=== PATIENT | female | born 1935 | race Caucasian/White ===

== ENCOUNTER 2017-07-16 10:38 | Emergency (ER) | payer MEDICARE, OTHER ==
[~2017-07-16] VITALS: Ht 170.2 cm; Wt 90.9 kg
[~2017-07-16 10:38] MED LIST: FERR324T4 PO; METO25 PO; MVI PO; PROT40TA PO; SERT50 PO
[2017-07-16 10:42] VITALS: BP 246/112; PULSE 60; RESP 14; TEMP 98.6; O2SAT 97
--- NOTE | 2017-07-16 11:05 | PD ---
HPI Chief Complaint: Hypertension Time Seen by Provider: 11:02 Travel History International Travel<30 days: No Contact w/Intl Traveler<30days: No Traveled to known affect area: No History of Present Illness HPI The patient is 79 years old and arrives to the ER complaining of headache. Location is frontal. Duration about a day and half. She does not typically have headaches. She reports hypertension over the past couple days as high as 240 at home. She is reported by chaperones here to have questionable compliance with metoprolol and valsartan. The patient has no chest pain shortness of breath or complaint consistent with hypertensive emergency otherwise. PFSH Past Medical History Arthritis: Yes Asthma: No Autoimmune Disease: No Blood Disorders: No Anxiety: Yes (0.25 Xanax prn) Depression: No Heart Rhythm Problems: No Cancer: Yes (COLON) Cardiovascular Problems: Yes (HTN ) High Cholesterol: No Chemotherapy: No Chest Pain: No Congestive Heart Failure: No COPD: No Cerebrovascular Accident: No Diabetes: Yes Diminished Hearing: Yes (hearing aids) Endocrine: Yes Gastrointestinal Disorders: Yes (COLON CANCER) GERD: No Genitourinary: No Hepatitis: No Hiatal Hernia: No Hypertension: Yes Immune Disorder: No Kidney Stones: No Musculoskeletal: Yes Neurologic: No Psychiatric: Yes (ANXIETY) Reproductive: No Respiratory: No Migraines: No Radiation Therapy: No Renal Failure: No Seizures: No Sickle Cell Disease: No Sleep Apnea: No Thyroid Disease: No Ulcer: No Past Surgical History Abdominal Surgery: Yes (Collectomy with partial gastrectomy) AICD: No Arteriovenous Shunt: No Body Medical Devices: LUMBAR HARDWARE Cardiac Surgery: No Ear Surgery: No (hearing aids) Endocrine Surgery: No Eye Surgery: No (cataracts) Genitourinary Surgery: No Gynecologic Surgery: Yes (HYSTERECTOMY) Hysterectomy: Yes Insulin Pump: No Joint Replacement: No Oral Surgery: No (dentures) Pacemaker: No Thoracic Surgery: No Other Surgery: Yes Social History Alcohol Use: No Tobacco Use: No Substance Use: No Allergies-Medications (Allergen,Severity, Reaction): Coded Allergies: No Known Allergies (Verified Adverse Reaction, Unknown, 07/17/17) Reported Meds & Prescriptions Reported Meds & Active Scripts Active Hydrochlorothiazide 25 Mg Tab 25 Mg PO DAILY Reported Sertraline (Sertraline HCl) 25 Mg Tab 25 Mg PO DAILY Metoprolol Tartrate 25 Mg Tab 25 Mg PO DAILY Losartan (Losartan Potassium) 100 Mg Tab 100 Mg PO DAILY Review of Systems Except as stated in HPI: all other systems reviewed are Neg General / Constitutional: No: Fever HENT: Positive: Headaches Cardiovascular: No: Chest Pain or Discomfort Respiratory: No: Shortness of Breath Physical Exam Narrative GENERAL: 81-year-old female pleasant well-nourished well-developed no acute distress speaking full sentences SKIN: Warm and dry. HEAD: Atraumatic. Normocephalic. EYES: No scleral icterus. No injection or drainage. Extraocular muscles are intact. There is conjugate gaze. Pupils are equal and reactive to light ENT: No nasal bleeding or discharge. Mucous membranes pink and moist. NECK: Trachea midline. No JVD. CARDIOVASCULAR: Regular rate and rhythm. RESPIRATORY: No accessory muscle use. Clear to auscultation. Breath sounds equal bilaterally. GASTROINTESTINAL: Abdomen soft, non-tender, nondistended. Hepatic and splenic margins not palpable. MUSCULOSKELETAL: Extremities without clubbing, cyanosis, or edema. No obvious deformities. NEUROLOGICAL: Cranial nerves III through XII normal. Speech memory mentation normal. Patient's moving all extremities normally. PSYCHIATRIC: Appropriate mood and affect; insight and judgment normal. Data Data Last Documented VS Vital Signs Date Time Temp Pulse Resp B/P (MAP) Pulse Ox O2 Delivery O2 Flow Rate FiO2 07/16/17 15:19 07/16/17 12:47 48 18 95 Room Air 07/16/17 10:42 98.6 Vital signs reviewed BP at 12:20 PM is 175/78 Orders Orders Complete Blood Count With Diff (07/16/17 11:02) Basic Metabolic Panel (Bmp) (07/16/17 11:02) Ct Brain W/O Iv Contrast(Rout) (07/16/17 11:02) Ecg Monitoring (07/16/17 11:02) Iv Access Insert/Monitor (07/16/17 11:02) Oximetry (07/16/17 11:02) Sodium Chloride 0.9% Flush (Ns Flush) (07/16/17 11:15) Acetaminophen (Tylenol) (07/16/17 11:15) Clonidine (Catapres) (07/16/17 11:15) Hydralazine Inj (Apresoline Inj) (07/16/17 13:45) Ed Discharge Order (07/16/17 14:25) Labs Laboratory Tests Test 07/16/17 11:50 White Blood Count 5.6 TH/MM3 Red Blood Count 4.94 MIL/MM3 Hemoglobin 14.3 GM/DL Hematocrit 42.6 % Mean Corpuscular Volume 86.4 FL Mean Corpuscular Hemoglobin 29.0 PG Mean Corpuscular Hemoglobin Concent 33.5 % Red Cell Distribution Width 13.5 % Platelet Count 252 TH/MM3 Mean Platelet Volume 8.3 FL Neutrophils (%) (Auto) 63.3 % Lymphocytes (%) (Auto) 22.4 % Monocytes (%) (Auto) 10.1 % Eosinophils (%) (Auto) 2.9 % Basophils (%) (Auto) 1.3 % Neutrophils # (Auto) 3.5 TH/MM3 Lymphocytes # (Auto) 1.3 TH/MM3 Monocytes # (Auto) 0.6 TH/MM3 Eosinophils # (Auto) 0.2 TH/MM3 Basophils # (Auto) 0.1 TH/MM3 CBC Comment DIFF FINAL Differential Comment Blood Urea Nitrogen 15 MG/DL Creatinine 0.68 MG/DL Random Glucose 137 MG/DL Calcium Level 8.6 MG/DL Sodium Level 139 MEQ/L Potassium Level 4.0 MEQ/L Chloride Level 105 MEQ/L Carbon Dioxide Level 26.8 MEQ/L Anion Gap 7 MEQ/L Estimat Glomerular Filtration Rate 83 ML/MIN MDM Medical Decision Making Medical Screen Exam Complete: Yes Emergency Medical Condition: Yes Medical Record Reviewed: Yes Differential Diagnosis Intracranial hemorrhage, hypoxia, hypertensive encephalopathy, migraine Narrative Course Patient received clonidine and metoprolol. Blood pressure improved dramatically although measurements with manual cuff was required with a final bp of approx 160/70. Head CT is unremarkable. The patient's blood work is unremarkable. The necessity of compliance of antihypertensives discussed. The patient's agreeable plan as are chaperones. We tried to discuss the case with dr real however were referred to dr hahn and then referred to yet another primary who was unfamiliar with the patient. pt was discharged with instruction to follow up with dr real for BP medication management if necessary. implementation of hctz in the interim considered reasonable. Diagnosis Primary Impression: Hypertension Qualified Codes: I10 - Essential (primary) hypertension Additional Impression: Cephalgia Qualified Codes: R51 - Headache Referrals: Primary Care Physician 2 days Additional Instructions: You have a choice when it comes to health care, and we are glad that you chose [facility]. Hopefully, we have met your expectations on today's visit. You are welcome to return to [facility] at any time, as we are committed to meeting the health care needs of our community. Med/Other Pt SpecificInfo: No Change to Meds Scripts Hydrochlorothiazide (Hydrochlorothiazide) 25 Mg Tab 25 MG PO DAILY, #30 TAB 0 Refills Prov: Reagan Blackwell MD 07/16/17 Disposition: 01 DISCHARGE HOME Condition: Stable Reagan Blackwell MD Jul 16, 2017 11:05
[2017-07-16 11:08] VITALS: PULSE 50; RESP 18; O2SAT 95
[2017-07-16] MEDS ORDERED: ACETAMINOPHEN 325 MG TAB PO ONE (11:15)
[2017-07-16] MEDS ORDERED: SODIUM CHLORIDE 0.9% FLUSH 10 ML FLUSH IVF PRN (11:15)
[2017-07-16] MEDS ORDERED: cloNIDine HCL 0.1 MG TAB PO ONE (11:15)
[2017-07-16 12:08] LABS: AUTOMATED NEUTROPHIL # 3.5 TH/MM3 (1.8-7.7); BASOPHIL # 0.1 TH/MM3 (0-0.2); BASOPHIL % 1.3 % (0.0-2.0); EOSINOPHIL # 0.2 TH/MM3 (0-0.4); EOSINOPHIL % 2.9 % (0.0-4.0); HEMATOCRIT 42.6 % (35.0-46.0); HEMOGLOBIN 14.3 GM/DL (11.6-15.3); LYMPH % 22.4 % (9.0-44.0); LYMPHOCYTE # 1.3 TH/MM3 (1.0-4.8); MEAN CELL VOLUME 86.4 FL (80.0-100.0); MEAN CORPUSCULAR HGB CONC 33.5 % (32.0-36.0); MEAN PLATELET VOLUME 8.3 FL (7.0-11.0); MONO % 10.1 % (0.0-8.0); MONOCYTE # 0.6 TH/MM3 (0-0.9); NEUT % 63.3 % (16.0-70.0); PLATELET COUNT 252 TH/MM3 (150-450); RED BLOOD COUNT 4.94 MIL/MM3 (4.00-5.30); RED CELL DISTRIBUTION WIDTH 13.5 % (11.6-17.2); WHITE BLOOD COUNT 5.6 TH/MM3 (4.0-11.0)
--- NOTE | 2017-07-16 12:14 | RADRPT ---
EXAM DATE/TIME: 07/16/2017 11:51 [facility] COMPARISON: CT BRAIN W/O CONTRAST, October 06, 2014, 15:19. INDICATIONS : High blood pressure, headache. RADIATION DOSE: 56.35 CTDIvol (mGy) MEDICAL HISTORY : Cardiovascular disease. Hypertension. Carcinoma, colon.Diabetes. SURGICAL HISTORY : Hysterectomy. ENCOUNTER: Initial ACUITY: 1 day PAIN SCALE: 6/10 LOCATION: cranial TECHNIQUE: Multiple contiguous axial images were obtained of the head. Using automated exposure control and adj ustment of the mA and/or kV according to patient size, radiation dose was kept as low as reasonably a chievable to obtain optimal diagnostic quality images. DICOM format image data is available electro nically for review and comparison. FINDINGS: There is marked central and cortical atrophy with dilatation of ventricular and sulcal spaces. There is no parenchymal hemorrhage, acute infarction or mass lesion identified. There are no extra-axial fluid collections appreciated. The posterior fossa is unremarkable with midline fourth ventricle. T he portion of the orbits and paranasal sinuses visualized are unremarkable. CONCLUSION: Atrophy, negative for acute process. Rolando Doherty MD FACR on July 16, 2017 at 12:07 Board Certified Radiologist. This report was verified electronically.
[2017-07-16 12:25] LABS: BICARBONATE 26.8 MEQ/L (21.0-32.0); CALCIUM 8.6 MG/DL (8.5-10.1); CREATININE 0.68 MG/DL (0.50-1.00)
[2017-07-16 12:47] VITALS: BP 211/86; PULSE 48; RESP 18; O2SAT 95
[2017-07-16] MEDS ORDERED: METO25TA3 PO (13:19)
[2017-07-16] MEDS ORDERED: SERT25TA83 PO (13:19)
[2017-07-16] MEDS ORDERED: LOSA100T PO (13:19)
[2017-07-16] MEDS ORDERED: hydrALAZINE HCL 20 MG/ML VIAL IV PUSH ONE (13:45)
[2017-07-16] MEDS ORDERED: HYDR25TA5 PO (14:28)
== END 2017-07-16 15:20 | disposition home or self-care (01) ==
LOC: NEPE 10:38
DX: I10 Essential (primary) hypertension (principal)
CPT/HCPCS: 70450; 80048; 85025; 96374; 99285; J0360

== ENCOUNTER 2017-07-17 01:39 | Emergency (ER) | payer BC, MEDICARE ==
[~2017-07-17] VITALS: Ht 170.2 cm; Wt 78.0 kg
[~2017-07-17 01:39] MED LIST changes: +HYDR25TA5 PO; +LOSA100T PO; +METO25TA3 PO; +SERT25TA83 PO
[2017-07-17 01:45] VITALS: BP 234/102; PULSE 104; RESP 18; TEMP 98; O2SAT 95
[2017-07-17] MEDS ORDERED: MORPHINE SULFATE 2 MG/ML INJ IV PUSH ONE (03:30)
[2017-07-17] MEDS ORDERED: hydrALAZINE HCL 20 MG/ML VIAL IV PUSH ONE (03:30)
[2017-07-17] MEDS ORDERED: ONDANSETRON HCL 4 MG/2 ML VIAL IV PUSH ONE (03:30)
--- NOTE | 2017-07-17 03:32 | PD ---
HPI Chief Complaint: Headache Time Seen by Provider: 02:40 Travel History International Travel<30 days: No Contact w/Intl Traveler<30days: No Traveled to known affect area: No History of Present Illness HPI The patient is a 81-year-old female who presents emergency department for headache and elevated blood pressure. The patient presents with her daughter, they state they were seen in the emergency department yesterday for headache. The patient was noted to have elevated blood pressure that time. The patient had a CT of her brain which was negative, she was administered medications to get her blood pressure lowered, was discharged home with a prescription for hydrochlorothiazide. They did drop off the prescription, but were unable to get the prescription filled. The patient did take her list are 100 mg earlier tonight and her metoprolol 50 mg orally early tonight. She does complain of a frontal headache, throbbing, with mild nausea. She denies any chest pain, shortness of breath, or focal deficits. She does have a history of hypertension for which she takes losartan and metoprolol on a daily basis. Symptoms are moderate, possibly exacerbated by elevated blood pressure, and there are no current alleviating factors. PFSH Past Medical History Arthritis: Yes Asthma: No Autoimmune Disease: No Blood Disorders: No Anxiety: Yes (0.25 Xanax prn) Depression: No Heart Rhythm Problems: No Cancer: Yes (COLON) Cardiovascular Problems: Yes (HTN) High Cholesterol: No Chemotherapy: No Chest Pain: No Congestive Heart Failure: No COPD: No Cerebrovascular Accident: No Diabetes: Yes Patient Takes Glucophage: No Diminished Hearing: Yes (hearing aids) Endocrine: Yes Gastrointestinal Disorders: Yes (COLON CANCER) GERD: No Genitourinary: No Hepatitis: No Hiatal Hernia: No Heparin Induced Thrombocytopen: No Hypertension: Yes Immune Disorder: No Implanted Vascular Access Dvce: Yes Kidney Stones: No Musculoskeletal: Yes Neurologic: No Psychiatric: Yes (ANXIETY) Reproductive: No Respiratory: Yes (COPD) Migraines: No Radiation Therapy: No Renal Failure: No Seizures: No Sickle Cell Disease: No Sleep Apnea: No Thyroid Disease: No Ulcer: No Past Surgical History Abdominal Surgery: Yes (Collectomy with partial gastrectomy) AICD: No Arteriovenous Shunt: No Body Medical Devices: LUMBAR HARDWARE Cardiac Surgery: No Endocrine Surgery: No Genitourinary Surgery: No Gynecologic Surgery: Yes (HYSTERECTOMY) Hysterectomy: Yes Insulin Pump: No Joint Replacement: No Pacemaker: No Thoracic Surgery: No Other Surgery: Yes Social History Alcohol Use: No Tobacco Use: No Substance Use: No Allergies-Medications (Allergen,Severity, Reaction): Coded Allergies: No Known Allergies (Verified Adverse Reaction, Unknown, 07/17/17) Reported Meds & Prescriptions Reported Meds & Active Scripts Active Hydrochlorothiazide 25 Mg Tab 25 Mg PO DAILY Reported Sertraline (Sertraline HCl) 25 Mg Tab 25 Mg PO DAILY Metoprolol Tartrate 25 Mg Tab 25 Mg PO DAILY Losartan (Losartan Potassium) 100 Mg Tab 100 Mg PO DAILY Review of Systems Except as stated in HPI: all other systems reviewed are Neg Eyes: No: Blurred Vision HENT: Positive: Headaches, No: Neck Pain Cardiovascular: No: Chest Pain or Discomfort Respiratory: No: Shortness of Breath Gastrointestinal: Positive: Nausea, No: Vomiting, Abdominal Pain Neurologic: Positive: Headache, No: Change in Mentation, Slurred Speech, Paresthesia, Sensory Disturbance Physical Exam Narrative GENERAL: Awake, alert, pleasant 81-year-old female who appears her stated age and is in no acute respiratory distress. SKIN: Focused skin assessment warm/dry. HEAD: Atraumatic. Normocephalic. The patient is wearing a hair piece. EYES: Pupils equal and round. Pupils are 2 mm bilateral. EOMs are intact. Patient is able to see fingers at a distance of 2 feet without difficulty. ENT: No nasal bleeding or discharge. Mucous membranes pink and moist. NECK: Trachea midline. No JVD. CARDIOVASCULAR: Regular rate and rhythm. No murmur appreciated. RESPIRATORY: No accessory muscle use. Clear to auscultation. Breath sounds equal bilaterally. GASTROINTESTINAL: Abdomen soft, non-tender, nondistended. No rebound tenderness. MUSCULOSKELETAL: No obvious deformities. No clubbing. No cyanosis. No edema. NEUROLOGICAL: Awake and alert. No obvious cranial nerve deficits. Motor grossly within normal limits. Normal speech. Nonfocal. Oriented to date of and daughter, does not know the current month or year. Baseline according to daughter. No drift of the arms or legs. Sensation is symmetric on the face, arms, and legs. Smile is symmetric and tight is midline. PSYCHIATRIC: Appropriate mood and affect; insight and judgment normal. Data Data Last Documented VS Vital Signs Date Time Temp Pulse Resp B/P (MAP) Pulse Ox O2 Delivery O2 Flow Rate FiO2 07/17/17 04:22 72 18 166/71 (102) 95 Room Air 07/17/17 01:45 98.0 Orders Orders Hydralazine Inj (Apresoline Inj) (07/17/17 03:30) Morphine Inj (Morphine Inj) (07/17/17 03:30) Ondansetron Inj (Zofran Inj) (07/17/17 03:30) MDM Medical Decision Making Medical Screen Exam Complete: Yes Emergency Medical Condition: Yes Medical Record Reviewed: Yes Differential Diagnosis Differential diagnoses includes hypertensive urgency, hypertensive emergency, hypertension, intracranial hemorrhage, tension headache, migraine, glaucoma. Narrative Course IV was established and the patient was placed on cardiac telemetry monitoring and continuous pulse oximetry monitoring. I reviewed the patient's visit from 07/16/2017, she had a CT the brain which revealed atrophy, otherwise was unremarkable. BUN and creatinine were normal. 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 I reviewed the EMR, she was given a prescription for hydrochlorothiazide 25 mg daily. The patient's blood pressure was 166/71 and her headache had resolved. I did have a discussion with the daughter stating the patient's blood pressure will fluctuate, she should take the hydrochlorothiazide in the morning and her losartan at night. Continue metoprolol as previously directed. The patient will be provided a copy of her CT results and lab results from her previous visit for follow-up with Dr. Moyer. She is advised to check her blood pressure once a day in the morning and to keep a log for further follow-up as she may need further adjustment of her medications. Diagnosis Primary Impression: Hypertensive urgency Patient Instructions: General Instructions Additional Instructions: Please provide a patient a copy of her CT results and lab results from her previous visit yesterday. Medications as directed earlier and start urine blood pressure medication as previously directed. Monitor blood pressure and keep a daily log and follow-up with Dr. Gio Moyer. Return if symptoms worsen or progress. Med/Other Pt SpecificInfo: No Change to Meds Disposition: 01 DISCHARGE HOME Condition: Stable Jac Mc MD Jul 17, 2017 03:32
[2017-07-17 04:22] VITALS: BP 166/71; PULSE 72; RESP 18; O2SAT 95
[2017-07-17 04:27] VITALS: RESP 20
[2017-07-17] MEDS ORDERED: ONDANSETRON ODT 4 MG TAB PO ONE (05:00)
== END 2017-07-17 06:46 | disposition home or self-care (01) ==
LOC: NEPC 01:39
DX: I16.0 Hypertensive urgency (principal); R11.0 Nausea; M19.90 Unspecified osteoarthritis, unspecified site; F41.9 Anxiety disorder, unspecified; E11.9 Type 2 diabetes mellitus without complications; J44.9 Chronic obstructive pulmonary disease, unspecified; Z79.899 Other long term (current) drug therapy
CPT/HCPCS: 96374; 96375; 99284; J0360; J2270; J2405

== ENCOUNTER 2017-09-13 03:18 | Emergency (ER) | payer MEDICARE ==
[~2017-09-13] VITALS: Ht 170.2 cm; Wt 91.0 kg
[~2017-09-13 03:18] MED LIST changes: -FERR324T4 PO; -METO25 PO; -MVI PO; -PROT40TA PO; -SERT50 PO
[2017-09-13 03:20] VITALS: BP 115/73; PULSE 75; RESP 20; TEMP 98; O2SAT 95
[2017-09-13] MEDS ORDERED: VALS1TAB70 PO (03:46)
--- NOTE | 2017-09-13 03:59 | PD ---
HPI . Coughing Chief Complaint: Respiratory Symptoms Time Seen by Provider: 03:52 Travel History International Travel<30 days: No Contact w/Intl Traveler<30days: No Traveled to known affect area: No History of Present Illness HPI Patient presents with chief complaint of coughing. Onset was a couple weeks ago. She was treated with a Z-[place]. She continues to have a cough along with shortness of breath and wheezing. She reports a history of COPD but does not take any medications for COPD. She states that she is not running a fever. She is unaware of any modifying factors. Symptoms are mild. PFSH Past Medical History Arthritis: Yes Asthma: No Autoimmune Disease: No Blood Disorders: No Anxiety: Yes (0.25 Xanax prn) Depression: No Heart Rhythm Problems: No Cancer: Yes (COLON) Cardiovascular Problems: Yes (HTN) High Cholesterol: No Chemotherapy: No Chest Pain: No Congestive Heart Failure: No COPD: No Cerebrovascular Accident: No Diabetes: Yes Patient Takes Glucophage: No Diminished Hearing: Yes (hearing aids) Endocrine: Yes Gastrointestinal Disorders: Yes (COLON CANCER) GERD: No Genitourinary: No Hepatitis: No Hiatal Hernia: No Heparin Induced Thrombocytopen: No Hypertension: Yes Immune Disorder: No Implanted Vascular Access Dvce: Yes Kidney Stones: No Musculoskeletal: Yes Neurologic: No Psychiatric: Yes (ANXIETY) Reproductive: No Respiratory: Yes (COPD) Migraines: No Radiation Therapy: No Renal Failure: No Seizures: No Sickle Cell Disease: No Sleep Apnea: No Thyroid Disease: No Ulcer: No Tetanus Vaccination: Unknown Influenza Vaccination: Yes Past Surgical History Abdominal Surgery: Yes (Collectomy with partial gastrectomy) AICD: No Arteriovenous Shunt: No Body Medical Devices: LUMBAR HARDWARE Cardiac Surgery: No Endocrine Surgery: No Genitourinary Surgery: No Gynecologic Surgery: Yes (HYSTERECTOMY) Hysterectomy: Yes Insulin Pump: No Joint Replacement: No Pacemaker: No Thoracic Surgery: No Other Surgery: Yes Social History Alcohol Use: No Tobacco Use: No Substance Use: No Allergies-Medications (Allergen,Severity, Reaction): Coded Allergies: No Known Allergies (Verified Adverse Reaction, Unknown, 09/13/17) Reported Meds & Prescriptions Reported Meds & Active Scripts Active Hydrochlorothiazide 25 Mg Tab 25 Mg PO DAILY Reported Valsartan 320 Mg Tab 320 Mg PO DAILY Sertraline (Sertraline HCl) 25 Mg Tab 25 Mg PO DAILY Metoprolol Tartrate 25 Mg Tab 25 Mg PO DAILY Review of Systems Except as stated in HPI: all other systems reviewed are Neg General / Constitutional: No: Fever, Chills Cardiovascular: No: Chest Pain or Discomfort Respiratory: Positive: Cough, Shortness of Breath, Wheezing Physical Exam Narrative GENERAL: Awake and alert and in no acute distress. SKIN: Warm and dry. HEAD: Normocephalic/atraumatic. EYES: Pupils are equal. Extraocular movements are intact. NECK: Normal range of motion. CARDIOVASCULAR: Regular rate and rhythm. Heart sounds are normal. RESPIRATORY: Nonlabored respirations. Lungs have diminished air movement with coarse expiratory wheezing. MUSCULOSKELETAL: Atraumatic. NEUROLOGICAL: Nonfocal. PSYCHIATRIC: Appropriate mood and affect. Data Data Last Documented VS Vital Signs Date Time Temp Pulse Resp B/P (MAP) Pulse Ox O2 Delivery O2 Flow Rate FiO2 09/13/17 03:20 98.0 75 20 115/73 (87) 95 Room Air Orders Orders Albuterol-Ipratropium Neb (Duoneb Neb) (09/13/17 04:00) Prednisone (Deltasone) (09/13/17 04:45) Albuterol-Ipratropium Neb (Duoneb Neb) (09/13/17 04:45) Acetaminophen (Tylenol) (09/13/17 05:15) MDM Medical Decision Making Medical Screen Exam Complete: Yes Emergency Medical Condition: Yes Differential Diagnosis My differential diagnosis includes but is not limited to asthma, COPD, bronchitis, pneumonia, CHF Narrative Course Patient presents with cough and wheezing. She has a reported history of COPD but does not take any medications for COPD. She has diminished air movement and diffuse wheezing on exam. She will be treated with stacked nebs. Following her first set of nebs, she reports that her breathing is improved but not completely back to normal. On repeat examination, her air movement is improved. She now has diffuse coarse inspiratory and expiratory wheezing. I will give her another set of nebs along with some oral prednisone. Patient reports that she is markedly improved following the second set of nebs. Her lungs now have good air movement. She has some coarse wheezing that clears with coughing. I will discharge her to home with prescriptions for an albuterol inhaler and prednisone. Diagnosis Primary Impression: COPD (chronic obstructive pulmonary disease) Qualified Codes: J44.1 - Chronic obstructive pulmonary disease with (acute) exacerbation Patient Instructions: COPD (Chronic Obstructive Pulmonary Disease) (DC), General Instructions Med/Other Pt SpecificInfo: Prescription(s) given Scripts Prednisone (Prednisone) 50 Mg Tab 50 MG PO DAILY for 5 Days, #5 TAB 0 Refills Prov: Yaa Palma MD 09/13/17 Albuterol 18 GM Inh (Ventolin Hfa 18 GM Inh) 90 Mcg/Act Aer 2 PUFF INH Q4-6H Y for SHORTNESS OF BREATH, #1 INHALER 0 Refills Prov: Yaa Palma MD 09/13/17 Disposition: 01 DISCHARGE HOME Condition: Stable Yaa Palma MD Sep 13, 2017 03:59
[2017-09-13] MEDS: RESP: ALBUTEROL 2.5 MG/IPRATROPIUM 0.5 MG NEB (SCH) INH ×2 (04:01→04:41)
[2017-09-13] MEDS ORDERED: predniSONE 20 MG TAB PO ONE (04:45)
[2017-09-13] MEDS ORDERED: ACETAMINOPHEN 325 MG TAB PO ONE (05:15)
[2017-09-13] MEDS ORDERED: VENTAER INH (05:36)
[2017-09-13] MEDS ORDERED: PRED50 PO (05:36)
== END 2017-09-13 05:55 | disposition home or self-care (01) ==
LOC: NEPE 03:18
DX: J44.1 Chronic obstructive pulmonary disease with (acute) exacerbation (principal); F41.9 Anxiety disorder, unspecified; I10 Essential (primary) hypertension; E11.9 Type 2 diabetes mellitus without complications; M19.90 Unspecified osteoarthritis, unspecified site; Z85.038 Personal history of other malignant neoplasm of large intestine
CPT/HCPCS: 94640; 94664; 99283; J7512